=== PATIENT | female | born 1945 | race Caucasian/White ===

== ENCOUNTER 2021-09-27 06:03 | Inpatient (IN) | payer MEDICARE, BC ==
[2021-09-20 16:13] LABS: CLARITY,URINE CLOUDY (Clear); COLOR,URINE YELLOW (Yellow); GLUCOSE, URINE NEGATIVE (Neg); KETONES,URINE NEGATIVE (Neg); LEUKOCYTE ESTERASE ,URINE SMALL (Neg); NITRITES, URINE NEGATIVE (Neg); OCCULT BLOOD,URINE NEGATIVE (Neg); PH,URINE 6.5 (4.8-8.0); PROTEIN,URINE NEGATIVE (Neg); UROBILINOGEN,URINE 0.2 E.U/dL (0.2-1.0)
[2021-09-20 16:23] LABS: UA COLLECTION TYPE NON-SPECIFIED
[2021-09-20 16:36] LABS: MUCUS STRANDS FEW /LPF (Neg); SQUAMOUS EPITHELIAL CELL,UR MODERATE /LPF (FEW)
[2021-09-20 16:37] LABS: BACTERIA,URINE 1+ /HPF (Neg); RBC,URINE 0-2 /HPF (0-2); WBC,URINE 0-4 /HPF (0-4)
[2021-09-20 16:41] LABS: BASOPHILS # (AUTO) 0.1 X10'3 (0-0.2); EOSINOPHILS # (AUTO) 0.1 X10'3 (0-0.9); MEAN CORPUSCULAR HEMOGLOBIN 27.9 PG (27.0-31.0); MONOCYTES # (AUTO) 0.4 X10'3 (0-0.9); NEUTROPHILS # (AUTO) 3.5 X10'3 (1.8-7.7); PRE OP HEMOGLOBIN 14.3 g/dL (12.0-16.0); PRE OP PLATELET COUNT 258 X10'3 (140-440); RED BLOOD COUNT 5.12 X10'6 (4.20-5.60); RED CELL DISTRIBUTION WIDTH 25.6 % (11.5-14.5)
[2021-09-20 16:43] LABS: BASOPHILS % (AUTO) 1.7 % (0-1); EOSINOPHILS % (AUTO) 2.4 % (0-6); LYMPHOCYTES # (AUTO) 1.3 X10'3 (1.1-4.8); LYMPHOCYTES % (AUTO) 24.2 % (21-51); MEAN CORPUSCULAR HGB CONC 33.7 g/dL (33.0-36.5); MEAN CORPUSCULAR VOLUME 82.9 FL (78-98); MEAN PLATELET VOLUME 8.9 FL (7.4-10.4); MONOCYTES % (AUTO) 7.4 % (2-12); NEUTROPHILS % (AUTO) 64.3 % (42-75); PRE OP HEMATOCRIT 42.4 % (35.0-45.0)
[2021-09-20 16:56] LABS: PRE OP PROTIME 10.2 SECONDS (9.0-12.0)
[2021-09-20 17:28] LABS: ANISOCYTOSIS 3+; PLATELET ESTIMATE NORMAL
[2021-09-20 17:29] LABS: ELLIPTOCYTES FEW; SCHISTOCYTES FEW
[2021-09-20 17:32] LABS: ALBUMIN 2.7 G/DL (3.4-5.0); ALBUMIN/GLOBULIN RATIO 0.6 (1.1-1.5); ALKALINE PHOSPHATASE 73 IU/L (46-116); BLOOD UREA NITROGEN 12 MG/DL (7-18); CALCIUM 8.9 MG/DL (8.5-10.1); CHLORIDE 109 MMOL/L (99-107); CREATININE 0.92 MG/DL (0.40-0.90); PRE OP ALT 14 U/L (30-65); PRE OP ANION GAP 8 (8-16); PRE OP AST 14 U/L (10-37); PRE OP BILIRUB, TOTAL 0.2 MG/DL (0.0-1.0); PRE OP GLUCOSE 99 MG/DL (70-104); PRE OP POTASSIUM 3.9 MMOL/L (3.4-5.1); PRE OP SODIUM 144 MMOL/L (135-145); TOTAL CARBON DIOXIDE 26.8 MMOL/L (24-32); TOTAL PROTEIN 7.3 G/DL (6.4-8.2); eGFR 59 ML/MIN
[2021-09-27] VITALS (15 sets, daily range): BP systolic 110–167; BP diastolic 64–96
[~2021-09-27] VITALS: Ht 170.2 cm; Wt 76.7 kg
[~2021-09-27 06:03] MED LIST: ASPI81TA52 PO; FAMO20TA8 PO; FEXO180T94 PO; FLUT1BLS16 INH; HYDR-3972 PO; LEVO150T8 PO; PANT-47 PO; PRAV20TA4 PO; PRAV80TA3 PO; VITAMIN D; ZOLP10TA PO; ceFOXitin 2GM-NS 100mL ADDvant 100 ML IV ONE; famotidine 20mg tablet PO ONE; ringers solution, lacted 1,000 ML IV SCH
[2021-09-27] MEDS ORDERED: diatr meglu/diatrizoate 30ml oral sol.-(3 dose) bottle ONE (07:00)
[2021-09-27] MEDS ORDERED: ceFOXitin 2GM-NS 100mL ADDvant 100 ML IV ONE (07:20)
[2021-09-27] MEDS ORDERED: ipratropium/albuterol 3ml nebule NEB ONE (09:05)
[2021-09-27] MEDS ORDERED: MIDAZolam 1 MG/ML 5ML VIAL ONE (10:37)
[2021-09-27] MEDS ORDERED: fentaNYL /PF 50mcg/ml 5ml ampule ONE (10:37)
[2021-09-27] MEDS ORDERED: BUPIVAcaine 0.5% inj/PF 30 ML ONE (10:39)
[2021-09-27] MEDS ORDERED: propofol inj 20 ML IV ONE (10:40)
[2021-09-27] MEDS ORDERED: rocuronium 10mg/ml inj IV ONE ×2 (10:40→14:56)
[2021-09-27] MEDS ORDERED: sevoflurane 250ml liquid IH ONE (11:01)
[2021-09-27] MEDS ORDERED: ePHEDrine 50MG/ML INJ. ONE (11:03)
[2021-09-27] MEDS ORDERED: dexamethasone sod phosphate 4mg/ml inj. ONE (11:30)
[2021-09-27] MEDS ORDERED: BUPIVACAINE liposomal/PF 13.3 MG/ML vial IM ONE (11:40)
[2021-09-27] MEDS ORDERED: ringers solution, lacted 1,000 ML IV SCH (12:15)
[2021-09-27] MEDS ORDERED: meperidine/PF 25mg/ml syringe IV PRN ×3 (12:15)
[2021-09-27] MEDS ORDERED: ondansetron/PF 4mg/2ml inj IV PRN (12:15)
[2021-09-27] MEDS ORDERED: proCHLORperazine 10 MG/2 ml inj IV PRN (12:15)
[2021-09-27] MEDS ORDERED: morphine 4 MG/ML inj SYRINge IV PRN (12:15)
[2021-09-27] MEDS ORDERED: morphine 2 MG/ML inj. syringe IV PRN (12:15)
[2021-09-27] MEDS ORDERED: ondansetron/PF 4mg/2ml inj ONE (14:56)
[2021-09-27] MEDS ORDERED: acetaminophen 1,000mg/100ml IV 100 ML IV ONE (15:18)
[2021-09-27] MEDS ORDERED: albumin (Human) 5% 250ml 250 ML IV ONE (15:21)
[2021-09-27] MEDS ORDERED: neostigmine methylsulfate 1 MG/ML 10ml vial ONE (15:21)
[2021-09-27] MEDS ORDERED: glycopyrrolate 0.2mg/ml inj ONE (15:22)
--- NOTE | 2021-09-27 15:50 | NUR ---
Received from OR via BED, accompanied by Anesthesiologist and report given by Anesthesiologist. PATIENT WAKING UP, NO S/S OF PAIN, V/S WNL, SCD ON, 20G TO LUE, ABDOMEN LAP SITE X6 CLEAN W/ NO S/S OF COMPLICATIONS. F/C DRAINING CLEAR YELLOW URINE.
[2021-09-27] MEDS ORDERED: BUPIVAcaine 0.5% inj/PF 30 ml vial IJ ONE (15:56)
[2021-09-27] MEDS ORDERED: naloxone 0.4 mg/ml inj IV PRN (16:20)
[2021-09-27] MEDS ORDERED: Potassium Cl inj 20 MEQ in ringers solution, lacted 1,000 ML IV SCH (16:20)
--- NOTE | 2021-09-27 16:40 | NUR ---
PATIENT ORIENTED X4, DENIES PAIN, V/S WNL, SCD ON, 20G TO LUE, ABDOMEN LAP SITE X6 CLEAN W/ NO S/S OF COMPLICATIONS. F/C DRAINING CLEAR YELLOW URINE. PLACED ON TELE. PATIENT TAKEN TO ROOM WITH ALL BELONGINGS AND HOOKED UP TO MONITORS IN ROOM AND GIVEN CALL LIGHT, REPORT GIVEN TO RN WHO HAS TAKEN OVER PATIENT CARE.
[2021-09-27] MEDS: HYDROmorphone inj. 0.5 MG/0.5 ML DISP.SYRIN IV PRN ×2 (19:04→23:20)
[2021-09-27] MEDS: potassium 20mEq/D5LR 1,000 ML IV SCH (23:20)
[2021-09-28] VITALS (7 sets, daily range): BP systolic 152–188; BP diastolic 75–104
[2021-09-28] MEDS ORDERED: ceFOXitin 1 GM/D5W 50mL IVPB 50 ML IV SCH
[2021-09-28] MEDS ORDERED: ceFOXitin inj 1,000 MG in normal saline 100ml IV soln 100 ML IV SCH (00:12)
[2021-09-28] MEDS ORDERED: ceFOXitin inj 1,000 MG in normal saline 100ml IV soln 100 ML IV ONE (00:25)
[2021-09-28 06:04] LABS: BASOPHILS % (AUTO) 0.1 % (0-1); EOSINOPHILS % (AUTO) 0 % (0-6); HEMATOCRIT 39.1 % (35.0-45.0); HEMOGLOBIN 12.8 g/dl (12.0-16.0); LYMPHOCYTES # (AUTO) 0.7 X10'3 (1.1-4.8); LYMPHOCYTES % (AUTO) 8.4 % (21-51); MEAN CORPUSCULAR HEMOGLOBIN 27.5 PG (27.0-31.0); MEAN CORPUSCULAR HGB CONC 32.7 g/dL (33.0-36.5); MEAN CORPUSCULAR VOLUME 84.1 FL (78-98); MEAN PLATELET VOLUME 8.8 FL (7.4-10.4); MONOCYTES # (AUTO) 0.8 X10'3 (0-0.9); MONOCYTES % (AUTO) 9.7 % (2-12); NEUTROPHILS # (AUTO) 6.5 X10'3 (1.8-7.7); NEUTROPHILS % (AUTO) 81.8 % (42-75); PLATELET COUNT 169 X10'3 (140-440); RED BLOOD COUNT 4.65 X10'6 (4.20-5.60); RED CELL DISTRIBUTION WIDTH 23.3 % (11.5-14.5)
[2021-09-28 06:09] LABS: ALBUMIN 3.4 G/DL (3.4-5.0); ANION GAP 8 (8-16); BLOOD UREA NITROGEN 14 MG/DL (7-18); BUN/CREATININE RATIO 15.2 (6.6-38.0); CALCIUM 8.4 MG/DL (8.5-10.1); CHLORIDE 108 MMOL/L (99-107); CREATININE 0.92 MG/DL (0.40-0.90); GLUCOSE 145 MG/DL (70-104); POTASSIUM 4.1 MMOL/L (3.5-5.1); SODIUM 140 MMOL/L (135-145); TOTAL CARBON DIOXIDE 24.2 MMOL/L (24-32); eGFR 59 ML/MIN
--- NOTE | 2021-09-28 06:30 | NUR ---
Patient in room ORTHO 4023. I have received report from LAVONNE Garcia and had the opportunity to ask questions and assume patient care.
[2021-09-28] MEDS: HYDROmorphone inj. 0.5 MG/0.5 ML DISP.SYRIN IV PRN ×5 (06:38→23:55)
--- NOTE | 2021-09-28 06:41 | NUR ---
Report given to Cristal BANERJEE.
[2021-09-28] MEDS: potassium 20mEq/D5LR 1,000 ML IV SCH ×3 (08:33→23:51)
[2021-09-28] MEDS ORDERED: HYDROcodone/acetaminophen 10/325mg tab PO PRN (13:35)
[2021-09-28] MEDS: albuterol 2.5 MG/3 ML nebule NEB PRN (15:50)
[2021-09-28] MEDS: ondansetron/PF 4mg/2ml inj IV PRN (15:56)
[2021-09-28] MEDS: pantoprazole 40mg Tablet.DR PO SCH (16:03)
--- NOTE | 2021-09-28 18:30 | NUR ---
Patient report given to Radha, and questions answered.
--- NOTE | 2021-09-28 18:30 | NUR ---
Report received from Cristal BANERJEE.
--- NOTE | 2021-09-28 18:55 | NUR ---
Spoke with MD Weaver regarding patient current BP of 188/104 with a heart rate of 70's and patient c/o increase in pain. New orders received for 10mg IV Hydralazine PRN q4h for SBP >160. Change [place] 10-325mg 1 tab from Q8h to Q6h PRN for moderate to severe pain. Miscellaneous nursing order received as well for q6h bladder scan with no void and straight cath for volume >400.
[2021-09-28] MEDS: hydrALAZINE 20mg/ml inj. IV PRN (19:05)
[2021-09-28] MEDS: HYDROcodone/acetaminophen 10/325mg tab PO PRN (20:13)
[2021-09-28] MEDS: zolpidem 5mg tablet PO PRN (20:14)
--- NOTE | 2021-09-28 23:40 | NUR ---
Pt attempted to urinated up in the bathroom, as she felt the urge. There was no urine output, bladder scan was completed with the largest scanned volume of 155 mls. Pt educated on this did not qualify for her to be straight cathed at this time and that we would continue to monitor. Pt verbalized understanding and in agreement with plan. Pt also informed this nurse that her pain continued to be better even after up ambulating to the bathroom and back to bed. Will continue to monitor.
[2021-09-29] VITALS (17 sets, daily range): BP systolic 118–184; BP diastolic 77–125
[2021-09-29] MEDS: HYDROcodone/acetaminophen 10/325mg tab PO PRN ×2 (03:44→11:17)
--- NOTE | 2021-09-29 06:28 | NUR ---
Report given to Idania BANERJEE.
[2021-09-29] MEDS: ondansetron/PF 4mg/2ml inj IV PRN ×2 (06:47→12:33)
[2021-09-29] MEDS: potassium 20mEq/D5LR 1,000 ML IV SCH ×3 (06:47→19:06)
[2021-09-29] MEDS: HYDROmorphone inj. 0.5 MG/0.5 ML DISP.SYRIN IV PRN ×2 (06:48→12:11)
[2021-09-29 07:16] LABS: ALBUMIN 3.4 G/DL (3.4-5.0); ANION GAP 8 (8-16); BASOPHILS % (AUTO) 0.1 % (0-1); BLOOD UREA NITROGEN 14 MG/DL (7-18); BUN/CREATININE RATIO 17.1 (6.6-38.0); CALCIUM 8.8 MG/DL (8.5-10.1); CHLORIDE 106 MMOL/L (99-107); CREATININE 0.82 MG/DL (0.40-0.90); EOSINOPHILS % (AUTO) 0 % (0-6); GLUCOSE 154 MG/DL (70-104); HEMOGLOBIN 15.1 g/dl (12.0-16.0); LYMPHOCYTES # (AUTO) 0.8 X10'3 (1.1-4.8); LYMPHOCYTES % (AUTO) 5.9 % (21-51); MEAN CORPUSCULAR HEMOGLOBIN 27.8 PG (27.0-31.0); MEAN CORPUSCULAR HGB CONC 33.5 g/dL (33.0-36.5); MEAN CORPUSCULAR VOLUME 82.9 FL (78-98); MEAN PLATELET VOLUME 8.6 FL (7.4-10.4); MONOCYTES # (AUTO) 1.1 X10'3 (0-0.9); MONOCYTES % (AUTO) 8.4 % (2-12); NEUTROPHILS # (AUTO) 11.3 X10'3 (1.8-7.7); NEUTROPHILS % (AUTO) 85.6 % (42-75); PLATELET COUNT 200 X10'3 (140-440); RED BLOOD COUNT 5.43 X10'6 (4.20-5.60); RED CELL DISTRIBUTION WIDTH 23.4 % (11.5-14.5); SODIUM 140 MMOL/L (135-145); TOTAL CARBON DIOXIDE 26.1 MMOL/L (24-32); WHITE BLOOD COUNT 13.2 X10'3 (4.5-11.0); eGFR 68 ML/MIN
[2021-09-29 07:20] LABS: POTASSIUM 4.3 MMOL/L (3.5-5.1)
[2021-09-29] MEDS ORDERED: pantoprazole 40mg Tablet.DR PO SCH (08:00)
[2021-09-29] MEDS: pantoprazole 40mg Tablet.DR PO SCH (09:03)
[2021-09-29] MEDS: levoTHYROXINE 75mcg tablet PO SCH (09:03)
[2021-09-29] MEDS: atorvastatin 10mg tablet PO SCH (09:04)
--- NOTE | 2021-09-29 09:41 | NUR ---
Bladder scan initially showed 119 ml per SCREENING UNIT REGISTERED NURSE Will report. When I did the blader scan myself, it only showed >95 ml. Patient has been having some discomfort and patient stated that she feel like she has to go pee but won't come out. The last time she urinated was when the quarrying specialist had to straight cath her per patient's report. Will go ahead and straight cath her Addendum: 09/29/21 at 0945 by Trinh Collado RN Per report, the patient was straight cath about 03:30 am this am
--- NOTE | 2021-09-29 10:10 | NUR ---
Charge nurse LAVONNE Kaufman performed the straight cath for this patient as I was having hard time finding the uretheral opening. LAVONNE Kaufman successfully performed the straight cath using sterile technique. 200 ml of light diane urine was noted when patient was straight catheterized.
[2021-09-29] MEDS: albuterol 2.5 MG/3 ML nebule NEB PRN (10:16)
--- NOTE | 2021-09-29 10:49 | NUR ---
RT notified that the Trilegy inhaler was available at our hospital pharmacy when i called them
[2021-09-29] MEDS: Fluticasone/Umeclidin/Vilanter (Trelegy Ellipta 200-62.5-25) INHALER IH SCH (11:30)
[2021-09-29] MEDS: hydrALAZINE 20mg/ml inj. IV PRN (12:10)
--- NOTE | 2021-09-29 12:35 | NUR ---
Patient has been having greenish emesis today in small amount at a time approximately 30-50 ml for like 3-4 times since this am. Patient complaining of abdominal pain and her abdomen is distended with hypoactive bowel sounds. I paged Dr. Weaver and also left a voicemail message to his cellphone to call me back. Awaiting a this time. Zofran 4 mg IV given to patient and patient was advised not to eat at this time.
[2021-09-29] MEDS ORDERED: LIDOcaine 2% 10ml TOPICAL JELLY (Urojet) TP ONE (13:10)
--- NOTE | 2021-09-29 13:19 | NUR ---
Dr. Weaver notified about patient's nausea and vomiting of green emesis today as well as persistent urinary retention and elevated WBC today. Received order for CT scan abdomen without contrast, haque catheter, and NPO status.
--- NOTE | 2021-09-29 14:16 | NUR ---
Cook catheter Fr16 inserted by Darlene BANERJEE with my assistance using sterile technique. Patient tolerated the procedure well. CT scan department notified about the need for CT scan of abdomen and pelvis today.
[2021-09-29] MEDS ORDERED: HYDROmorphone inj. 0.5 MG/0.5 ML DISP.SYRIN IV PRN ×2 (16:55→21:10)
--- NOTE | 2021-09-29 17:11 | NUR ---
Per Dr. Weaver, patient is going for surgery tonight. OR charge nurse notified
--- NOTE | 2021-09-29 19:35 | NUR ---
Patient off floor to surgery, patient with upper partial in, large volume fluids sent with patient.
[2021-09-29] MEDS ORDERED: dexamethasone sod phosphate 10mg/ml inj ONE (19:54)
[2021-09-29] MEDS ORDERED: sevoflurane 250ml liquid IH ONE (19:54)
[2021-09-29] MEDS ORDERED: ondansetron/PF 4mg/2ml inj ONE (19:54)
[2021-09-29] MEDS ORDERED: fentaNYL/PF 50MCG/1 ML 2ML syringe ONE (20:07)
[2021-09-29] MEDS ORDERED: midazolam 1 mg/ML 2ml injection ONE (20:07)
[2021-09-29] MEDS ORDERED: succinylcholine 20mg/ml inj IV ONE (20:10)
[2021-09-29] MEDS ORDERED: propofol inj 20 ML IV ONE (20:10)
[2021-09-29] MEDS ORDERED: rocuronium 10mg/ml inj IV ONE (20:10)
[2021-09-29] MEDS ORDERED: ceFAZolin 1000mg inj ONE ×2 (20:25)
[2021-09-29] MEDS ORDERED: albumin (Human) 5% 250ml 250 ML IV ONE (20:26)
[2021-09-29] MEDS ORDERED: sugammadex 200mg/2ml injection IV ONE (20:58)
[2021-09-29] MEDS ORDERED: naloxone 0.4 mg/ml inj IV PRN ×2 (21:10)
[2021-09-29] MEDS ORDERED: ipratropium/albuterol 3ml nebule IH ONE (21:20)
--- NOTE | 2021-09-29 21:20 | NUR ---
Received from OR via , accompanied by Anesthesiologist and report given by Anesthesiolgist. PATIENT A&OX4, DENIES PAIN, V/S STABLE, LUNG SOUNDS WHEEZY RT PAGED FOR TX, 20G LUE, F/C DRAINING CLEAR YELLOW URINE. LARGE ABDOMEN DRESSING WITH MULTIPLE BANDAIDS CDI. NG RIGHT NARES TO CONTINOUS LOW WALL SUCTION BROWN DRAINAGE IN TUBE MINIMAL AMOUNT.
[2021-09-29] MEDS ORDERED: labetalol 5mg/ml 20ml inj. IV PRN (21:35)
--- NOTE | 2021-09-29 22:05 | NUR ---
PATIENT A&OX4, DENIES PAIN, V/S STABLE, LUNG SOUNDS LESS WHEEZY, 20G LUE, F/C DRAINING CLEAR YELLOW URINE. LARGE ABDOMEN DRESSING WITH MULTIPLE BANDAIDS CDI. NG RIGHT NARES TO CONTINUOUS LOW WALL SUCTION BROWN DRAINAGE IN TUBE MINIMAL AMOUNT. PATIENT TAKEN TO 4023B WITH ALL BELONGINGS AND HOOKED UP TO MONITORS IN ROOM AND REPORT GIVEN TO RN WHO HAS TAKEN OVER PATIENT CARE.
--- NOTE | 2021-09-29 22:21 | NUR ---
Patient arrived back to room from recovery. fur machine operator took report for patient. Pt a/o, vss will continue to monitor.
[2021-09-29] MEDS: zolpidem 5mg tablet PO PRN (22:54)
[2021-09-30] MEDS: ceFAZolin/D5W- 1GM premix 50 ML IV SCH ×2 (00:10→07:48)
[2021-09-30 00:50] VITALS: BP 138/86
[2021-09-30 01:50] VITALS: BP 123/82
--- NOTE | 2021-09-30 03:33 | NUR ---
At approximately 0300 in to assess patient, NG was found to be out. Patient agreeable to have NG replaced. Attempt made to replace 16MG to right Nare was unsuccessful as patient was moving all around and very uncooperative during the procedure. On the last attempt patient jerked her head and coughed, causing a bloody nose. At this time patient refused to have any further attempts made. Patient has had <300ml of gastric fluid out since arriving to the floor from recovery at approximately 2200. Informed charge account authorizer with instructions to let patient rest and have dayshift notify .
[2021-09-30] MEDS: potassium 20mEq/D5LR 1,000 ML IV SCH ×2 (04:30→13:50)
[2021-09-30 06:00] VITALS: BP 128/76
--- NOTE | 2021-09-30 06:15 | NUR ---
RECEIVED REPORT FROM LAVONNE LERMA
[2021-09-30 07:29] LABS: BASOPHILS % (AUTO) 0.1 % (0-1); EOSINOPHILS % (AUTO) 0 % (0-6); HEMATOCRIT 38.3 % (35.0-45.0); HEMOGLOBIN 12.6 g/dl (12.0-16.0); LYMPHOCYTES # (AUTO) 0.5 X10'3 (1.1-4.8); LYMPHOCYTES % (AUTO) 6.6 % (21-51); MEAN CORPUSCULAR HEMOGLOBIN 27.5 PG (27.0-31.0); MEAN CORPUSCULAR HGB CONC 32.8 g/dL (33.0-36.5); MEAN CORPUSCULAR VOLUME 83.7 FL (78-98); MEAN PLATELET VOLUME 8.6 FL (7.4-10.4); MONOCYTES # (AUTO) 0.4 X10'3 (0-0.9); MONOCYTES % (AUTO) 5.9 % (2-12); NEUTROPHILS # (AUTO) 6.1 X10'3 (1.8-7.7); NEUTROPHILS % (AUTO) 87.4 % (42-75); PLATELET COUNT 174 X10'3 (140-440); RED BLOOD COUNT 4.58 X10'6 (4.20-5.60); RED CELL DISTRIBUTION WIDTH 22.7 % (11.5-14.5)
[2021-09-30] MEDS: albuterol 2.5 MG/3 ML nebule NEB PRN ×2 (07:36→20:29)
[2021-09-30 07:38] LABS: ALBUMIN 2.8 G/DL (3.4-5.0); ANION GAP 7 (8-16); BLOOD UREA NITROGEN 15 MG/DL (7-18); BUN/CREATININE RATIO 17.4 (6.6-38.0); CALCIUM 8.3 MG/DL (8.5-10.1); CHLORIDE 108 MMOL/L (99-107); CREATININE 0.86 MG/DL (0.40-0.90); GLUCOSE 167 MG/DL (70-104); POTASSIUM 4.3 MMOL/L (3.5-5.1); SODIUM 142 MMOL/L (135-145); TOTAL CARBON DIOXIDE 26.7 MMOL/L (24-32); eGFR 64 ML/MIN
[2021-09-30] MEDS: Fluticasone/Umeclidin/Vilanter (Trelegy Ellipta 200-62.5-25) INHALER IH SCH (07:39)
[2021-09-30] MEDS: atorvastatin 10mg tablet PO SCH (08:08)
[2021-09-30] MEDS: pantoprazole 40mg Tablet.DR PO SCH (08:08)
[2021-09-30] MEDS: levoTHYROXINE 75mcg tablet PO SCH (08:09)
[2021-09-30] MEDS: pantoprazole 40MG/NS 100ML BAG 100 ML IV SCH ×2 (08:44→19:56)
[2021-09-30] MEDS: HYDROcodone/acetaminophen 10/325mg tab PO PRN ×2 (09:35→18:38)
[2021-09-30] MEDS ORDERED: metoclopramide 5 mg/ml inj IV PRN (12:30)
[2021-09-30] MEDS: metoclopramide 5 mg/ml inj IV SCH ×3 (13:53→19:56)
[2021-09-30 14:00] VITALS: BP 120/82
--- NOTE | 2021-09-30 14:00 | NUR ---
non admin 1400 med b/c med was given 100 min prior to 1400 med time
[2021-09-30 18:00] VITALS: BP 108/56
--- NOTE | 2021-09-30 18:22 | NUR ---
Gave report to LAVONNE Diehl.
--- NOTE | 2021-09-30 18:30 | NUR ---
Patient in room ORTH[facility] 4023. I have received report from NORMA BANERJEE and had the opportunity to ask questions and assume patient care.
[2021-09-30] MEDS: zolpidem 5mg tablet PO PRN (21:50)
[2021-09-30 22:00] VITALS: BP 149/79
[2021-10-01] MEDS: metoclopramide 5 mg/ml inj IV SCH ×3 (02:38→14:14)
[2021-10-01] MEDS: HYDROcodone/acetaminophen 10/325mg tab PO PRN ×2 (02:39→10:38)
[2021-10-01 06:00] VITALS: BP 119/71
--- NOTE | 2021-10-01 06:30 | NUR ---
Problems reprioritized. Patient report given, questions answered & plan of care reviewed with GONZALEZ BANERJEE.
[2021-10-01 06:33] LABS: BASOPHILS % (AUTO) 0.2 % (0-1); EOSINOPHILS # (AUTO) 0.1 X10'3 (0-0.9); EOSINOPHILS % (AUTO) 1.1 % (0-6); HEMATOCRIT 34.3 % (35.0-45.0); HEMOGLOBIN 11.3 g/dl (12.0-16.0); LYMPHOCYTES # (AUTO) 0.9 X10'3 (1.1-4.8); LYMPHOCYTES % (AUTO) 12.5 % (21-51); MEAN CORPUSCULAR HEMOGLOBIN 27.7 PG (27.0-31.0); MEAN CORPUSCULAR HGB CONC 32.9 g/dL (33.0-36.5); MEAN PLATELET VOLUME 9.1 FL (7.4-10.4); MONOCYTES # (AUTO) 0.7 X10'3 (0-0.9); MONOCYTES % (AUTO) 10.3 % (2-12); NEUTROPHILS # (AUTO) 5.2 X10'3 (1.8-7.7); NEUTROPHILS % (AUTO) 75.9 % (42-75); PLATELET COUNT 163 X10'3 (140-440); RED BLOOD COUNT 4.09 X10'6 (4.20-5.60); RED CELL DISTRIBUTION WIDTH 21.9 % (11.5-14.5); WHITE BLOOD COUNT 6.8 X10'3 (4.5-11.0)
--- NOTE | 2021-10-01 06:39 | NUR ---
Patient in room ORTH[facility] 4023. I have received report from Magui Kilgore RN and had the opportunity to ask questions and assume patient care.
[2021-10-01 06:40] LABS: ALBUMIN 2.7 G/DL (3.4-5.0); ANION GAP 5 (8-16); BLOOD UREA NITROGEN 15 MG/DL (7-18); CALCIUM 8.1 MG/DL (8.5-10.1); CHLORIDE 106 MMOL/L (99-107); CREATININE 0.79 MG/DL (0.40-0.90); GLUCOSE 113 MG/DL (70-104); POTASSIUM 3.7 MMOL/L (3.5-5.1); SODIUM 138 MMOL/L (135-145); TOTAL CARBON DIOXIDE 26.9 MMOL/L (24-32); eGFR 71 ML/MIN
[2021-10-01] MEDS: pantoprazole 40mg Tablet.DR PO SCH (07:29)
[2021-10-01] MEDS: atorvastatin 10mg tablet PO SCH (07:29)
[2021-10-01] MEDS: levoTHYROXINE 75mcg tablet PO SCH (07:29)
[2021-10-01] MEDS: Fluticasone/Umeclidin/Vilanter (Trelegy Ellipta 200-62.5-25) INHALER IH SCH (07:39)
[2021-10-01] MEDS: pantoprazole 40MG/NS 100ML BAG 100 ML IV SCH (08:00)
[2021-10-01] MEDS: albuterol 2.5 MG/3 ML nebule NEB PRN (08:52)
[2021-10-01 10:00] VITALS: BP 146/88
[2021-10-01 14:00] VITALS: BP 134/80
--- NOTE | 2021-10-01 15:25 | NUR ---
Explained all discharge and medication instructions to pt and spouse. Pt verbalized understanding. Both piv's were d/c'd, tip intact. Pt escorted to personal vehicle via wheelchair.
[2021-10-02] MEDS ORDERED: ALBU8.5H17 IH (16:18)
== END 2021-10-01 15:22 | disposition home or self-care (01) | DRG 327 ==
LOC: PAS IN 06:03 → ORTHO 4S 17:01
PROVIDERS: ADMIT Surgery; ATTEND Surgery
PROC: 0BUT0JZ Supplement Diaphragm with Synthetic Substitute, Open Approach (ICD-10-PCS; 2021-09-27)
PROC: 8E0W0CZ Robotic Assisted Procedure of Trunk Region, Open Approach (ICD-10-PCS; 2021-09-27)
PROC: BD11YZZ Fluoroscopy of Esophagus using Other Contrast (ICD-10-PCS; principal; 2021-09-28)
PROC: 0WQF0ZZ Repair Abdominal Wall, Open Approach (ICD-10-PCS; 2021-09-29)
DX: K44.9 Diaphragmatic hernia without obstruction or gangrene (principal); K43.0 Incisional hernia with obstruction, without gangrene
CPT/HCPCS: 36415; 71045; 71046; 74176; 74220; 80048; 80053; 81001; 82948; 84443; 85008; 85025; 85610; 85730; 86885; 86900; 86901; 87081; 87088; 88302; 93005; 94640; 94760; A4215; A4618; A7000; C1758; C9113; C9290; G0378; J0131; J0330; J0360; J0690; J0694; J1100; J1170; J2250; J2405; J2704; J2710; J2765; J3010; J3480; J3490; J7120; P9045; Q9963; S0020; U0003; U0005